=== PATIENT | male | born 1965 | race Caucasian/White ===

== ENCOUNTER 2020-06-15 20:19 | Emergency (ER) | payer MEDICARE ==
[~2020-06-15] VITALS: Ht 175.3 cm; Wt 67.1 kg
== END 2020-06-15 23:25 | disposition home or self-care (01) ==
LOC: ED 20:19
DX: S42.021A Displaced fracture of shaft of right clavicle, initial encounter for closed fracture (principal); Y04.8XXA Assault by other bodily force, initial encounter; F17.200 Nicotine dependence, unspecified, uncomplicated; Z88.8 Allergy status to other drugs, medicaments and biological substances
CPT/HCPCS: 73000; 73060; 99283-25; A9270